=== PATIENT | male | born 1980 | race Caucasian/White ===

== ENCOUNTER 2017-08-04 10:51 | Emergency (ER) | payer MEDICAID ==
[2017-08-04 11:12] VITALS: BP 145/80
== END 2017-08-04 13:46 | disposition home or self-care (01) ==
LOC: ED 10:51
DX: S93.401A Sprain of unspecified ligament of right ankle, initial encounter (principal); X58.XXXA Exposure to other specified factors, initial encounter; Y93.89 Activity, other specified; Y92.89 Other specified places as the place of occurrence of the external cause; Y99.8 Other external cause status